=== PATIENT | male | born 1955 | race Caucasian/White ===

== ENCOUNTER 2021-02-26 07:43 | Inpatient (IN) | payer OTHER ==
[~2021-02-26] VITALS: Ht 182.9 cm; Wt 142.9 kg
[~2021-02-26 07:43] MED LIST: AUGMENTIN 875875 M1 PO; NASONEX17 GM NS; NOHOMEMEDICATIONS; SUDAFED30 MG PO; ULTRAM 50MG TAB50 MG PO
[2021-02-26 07:48] VITALS: BP 234/105
[2021-02-26 08:11] LABS: BE -3.1 mmol/L (-2 to +3); PO2 110.9 mmHg (75.0-100.0)
[2021-02-26 08:12] LABS: PCO2 87.2 mmHg (35.0-45.0); pH 7.129 (7.340-7.450)
[2021-02-26 08:20] LABS: ABSOLUTE BASOPHILS 0.1 thou/uL (0.0-0.2); ABSOLUTE EOSINOPHILS 0.2 thou/uL (0.0-0.7); ABSOLUTE LYMPHOCYTES 1.5 thou/uL (0.8-5.3); ABSOLUTE MONOCYTES 1.1 thou/uL (0.0-1.2); ABSOLUTE NEUTROPHILS 12.8 thou/uL (1.6-8.1); BASOPHILS 0.4 %; EOSINOPHILS 1.4 %; HEMATOCRIT 36.4 % (42.0-52.0); HEMOGLOBIN 12.2 gm/dL (14.0-18.0); LYMPHOCYTES 9.5 %; MCH 33.9 pg (26.0-34.0); MCHC 33.5 g/dL (28.0-37.0); MPV 8.5 fl. (7.2-11.1); NUCLEATED RBCS 0 /100WBC; PLATELET COUNT* 187 thou/uL (150-400); POLYS 81.7 %; RDW-CV 15.6 % (10.5-14.5); WBC 15.7 thou/uL (4.0-11.0)
[2021-02-26 08:34] LABS: CALCIUM 9.4 mg/dL (8.5-10.1); CREATININE 1.3 mg/dL (0.6-1.3)
[2021-02-26] MEDS ORDERED: ELIQUIS5 MG PO (08:42)
[2021-02-26 08:44] LABS: ALBUMIN 4.2 g/dL (3.4-5.0); MAGNESIUM 2.2 mg/dL (1.8-2.4); TOTAL BILIRUBIN 0.8 mg/dL (<0.1-1.0); TOTAL PROTEIN 8.2 g/dL (6.4-8.2)
[2021-02-26 10:16] LABS: BE 1.2 mmol/L (-2 to +3); pH 7.304 (7.340-7.450)
[2021-02-26 10:18] LABS: PO2 136.7 mmHg (75.0-100.0)
--- NOTE | 2021-02-26 12:24 | EKG ---
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 : 1955 Requested By: Denzel Gorman Order Number: [id number] MD: Fish Laura Measurements Intervals [place] Rate: 73 P: 0 PA: 65 QRS: 53 QRSD: 100 T: 45 QT: 414 QTc: 457 Interpretive Statements Sinus rhythm Abnormal R-wave progression, late transition No previous ECG available for comparison Electronically Signed On 02-26-2021 12:23:49 CDT by Fish Laura [email or web address] <ELECTRONICALLY SIGNED> By: Fish Laura MD, [facility] 02/26/21 1223 0743 0743 Fish Laura MD, [facility] /EPI
[2021-02-26 12:35] VITALS: BP 141/51
[2021-02-26 13:36] VITALS: BP 174/73
[2021-02-26] MEDS ORDERED: LIPITOR 20 MG T20 M1 PO (14:44)
[2021-02-26] MEDS ORDERED: AMIODARONE HCL400 MG PO (14:47)
[2021-02-26] MEDS ORDERED: PACERONE 200 M200 M1 PO (14:50)
[2021-02-26] MEDS ORDERED: LISINOPRIL20 MG PO (14:56)
[2021-02-26] MEDS ORDERED: TORSEMIDE20 MG PO (14:59)
[2021-02-26] MEDS ORDERED: CARVEDILOL3.125 MG PO (15:00)
[2021-02-26] MEDS ORDERED: EPLERENONE25 MG PO (15:02)
--- NOTE | 2021-02-26 16:47 | NUR ---
PT ADMITTED TO UNIT AT 1330 FROM ER. ASSESSMENT COMPLETED AND PT IS PLEASANTLY A&OX4. PT REPORTS THAT HE FELT DIZZY THIS AM ALONG WITH SOB. PT NOW DENIES ANY DIZZINESS. MEDICATION RECONCILED WITH PT AND FORWARDED TO PHYSICIAN TO REVIEW. O2 AT 6L ON ADMIT TO UNIT AND NOW AT 2L PER NC AND MAINTAINING SATS IN THE UPPER 90'S TO 100. PT SITTING UP IN BED AND DENIES ANY SOB AT THIS TIME.MEDICATIONS ADMINISTERED ORDERED. PT IS CONTINENT OF B&B. UP TO BR WITH STAND BY ASSIST TO PROMOTE SAFETY.
[2021-02-26 17:36] VITALS: BP 181/72
[2021-02-26 20:00] VITALS: BP 129/54
[2021-02-26 23:48] VITALS: BP 123/63
--- NOTE | 2021-02-27 04:04 | NUR ---
PT A&O X 4. SB ON THE MONITOR. ON 2L NC, THEN BIPAP. UP AD WICHO. NO C/O PAIN. COVID PCR PENDING. CALL LIGHT WITHIN REACH. WILL CONTINUE TO MONITOR.
[2021-02-27 04:44] VITALS: BP 102/53
[2021-02-27 09:00] VITALS: BP 131/56
[2021-02-27 12:00] VITALS: BP 104/41
[2021-02-27 16:00] VITALS: BP 108/57
--- NOTE | 2021-02-27 16:46 | NUR ---
Anticipate dc today. PUI. On 2L. Vaccinated. Resides at home. [employer]. No DME. No hx of HH or SNF. Ex ox at dc
--- NOTE | 2021-02-27 17:10 | NUR ---
ASSUMED PT CARE AT 0730. PT IS A&OX4, FRIENDLY AND COOPERATIVE. ASSESSMENT COMPLETED. MEDICATIONS ADMINISTERED ORDERED. PT NOW OFF O2 AND MAINTAINING SATS IN THE MID TO UPPER 90'S.PT DENIES ANY PAIN,SOB OR DISCOMFORT. ANXIOUS TO BE DISCHARGED.
[2021-02-27] MEDS ORDERED: PREDNISONE 10 M10 MG PO (19:46)
[2021-02-27] MEDS ORDERED: PROAIR HFA8.5 GM INH (19:46)
[2021-02-27] MEDS ORDERED: AUGMENTIN 875-1 EACH PO (19:50)
--- NOTE | 2021-02-27 19:53 | NUR ---
Pt on room air. Resting spo2 93%. Walked for 6min spo2 maintained 96% on room air. After walk spo2 maintained 96%. Recommendation does not need home oxygen for discharge.
[2021-02-27 20:00] VITALS: BP 160/70
[2021-02-28] VITALS: BP 177/65
[2021-02-28 07:50] VITALS: BP 177/65
[2021-02-28 08:00] VITALS: BP 117/63
--- NOTE | 2021-02-28 10:14 | NUR ---
RECEIVED REPORT AROUND 0715. ASSUMED CARE. VS AND ASSESSMENT CHARTED. D/C ORDERS RECEIVED. IV TAKEN OUT. HEART MONITOR OFF. PT DID NOT WANT TO TAKE MORNING MEDS. "ILL TAKE THEM AT HOME." DISCHARGE PAPERS GIVEN TO PT. COMMUNICATED UNDERSTANDING. SCRIPTS CALLED IN TO [facility]. PT LEFT VIA WHEEL CHAIR WITH ALL BELONGINGS AND NURSING STAFF OFF UNIT AT 1008.
== END 2021-02-28 10:08 | disposition home or self-care (01) | DRG 177 ==
LOC: M.ERS 07:43 → M.TBA-ER 10:03 → M.ORTHSURG 10:03
PROVIDERS: Family Medicine; ADMIT Internal Medicine; ATTEND Internal Medicine
PROC: 5A09357 Assistance with Respiratory Ventilation, Less than 24 Consecutive Hours, Continuous Positive Airway Pressure (ICD-10-PCS; principal; 2021-02-26)
DX: J15.6 Pneumonia due to other Gram-negative bacteria (principal); J96.01 Acute respiratory failure with hypoxia; J96.02 Acute respiratory failure with hypercapnia; Z20.822 Contact with and (suspected) exposure to COVID-19; I48.91 Unspecified atrial fibrillation; F17.220 Nicotine dependence, chewing tobacco, uncomplicated; I10 Essential (primary) hypertension; E78.5 Hyperlipidemia, unspecified; R73.9 Hyperglycemia, unspecified; D72.829 Elevated white blood cell count, unspecified; R91.1 Solitary pulmonary nodule; Z79.899 Other long term (current) drug therapy